=== PATIENT | male | born 1970 | race Caucasian/White ===

== ENCOUNTER 2017-07-28 14:45 | Emergency (ER) | payer MEDICAID ==
[2017-07-28 14:58] VITALS: BP 133/96
[2017-07-28] MEDS ORDERED: SODIUM CHLORIDE 0.9% 1,000 ML IV ONE ×2 (15:13)
[2017-07-28] MEDS ORDERED: HYDROmorphone 1 MG/ML SYRINGE IVP STA ×3 (15:13→17:52)
--- NOTE | 2017-07-28 15:17 | ED Physician Documentation ---
PD HPI ABD PAIN - Stated complaint Stated Complaint: AB PX/BLOOD IN STOOL - Chief complaint Chief Complaint: Abd Pain - History obtained from History obtained from: Patient - History of Present Illness Timing - onset: How many days ago (3) Timing - duration: Days (3) Timing - details: Gradual onset Pain level max: 10 Pain level now: 10 Quality: Aching, Pain Location: LLQ Radiation: Other (non-radiating) Improved by: Laying still Worsened by: Palpation Associated symptoms: Fever, Nausea, Diarrhea, Hematochezia. No: Melena Similar symptoms before: Diagnosis (diverticulitis with abscesses in the past) Recently seen: Not recently seen Review of Systems Ten Systems: 10 systems reviewed and negative Constitutional: reports: Fever, Chills Ears: denies: Ear pain Nose: denies: Rhinorrhea / runny nose, Congestion Throat: denies: Sore throat Cardiac: denies: Chest pain / pressure Respiratory: denies: Cough GI: reports: Diarrhea. denies: Nausea, Hematemesis : denies: Dysuria Skin: denies: Rash Musculoskeletal: denies: Neck pain, Back pain Neurologic: denies: Headache PD PAST MEDICAL HISTORY - Past Medical History Past Medical History: Yes GI: Diverticulitis - Past Surgical History Past Surgical History: Yes Ortho: Spine surgery, Other - Present Medications Home Medications: Ambulatory Orders Medication Instructions Recorded Confirmed Amox/Clav 875/125 [Augmentin] 1 each PO Q12H #28 tablet 07/28/17 HYDROmorphone [Dilaudid] 2 mg PO Q4H PRN #14 tablet 07/28/17 Ondansetron Odt [Zofran] 4 mg TL Q6H PRN #10 tablet 07/28/17 - Allergies Allergies/Adverse Reactions: Allergies Allergy/AdvReac Type Severity Reaction Status Date / Time No Known Drug Allergies Allergy Verified 07/28/17 16:08 - Social History Does the pt smoke?: No Smoking Status: Never smoker Does the pt drink ETOH?: Yes Does the pt have substance abuse?: Yes Substance Use and Type: Marijuana PD ED PE NORMAL - Vitals Vital signs reviewed: Yes - General General: Alert and oriented X 3, No acute distress - HEENT HEENT: Moist mucous membranes - Neck Neck: Supple, no meningeal sign - Cardiac Cardiac: RRR - Respiratory Respiratory: No respiratory distress, Clear bilaterally - Abdomen Abdomen: Soft, Non distended, Other (TTP LLQ, no peritoneal signs. ) - Male Male : Pt declined - Back Back: No CVA TTP, No spinal TTP - Derm Derm: Warm and dry - Extremities Extremities: No edema - Neuro Neuro: Alert and oriented X 3 - Psych Psych: Normal mood, Normal affect Results - Vitals Vitals: Vital Signs - 24 hr 07/28/17 14:55 Temperature 36.3 C L Heart Rate 64 Respiratory 18 Rate Blood Pressure 133/96 H O2 Saturation 99 Oxygen O2 Source Room air - Labs Labs: Laboratory Tests 07/28/17 07/28/17 15:40 15:40 WBC 8.4 RBC 4.67 L Hgb 13.9 L Hct 42.8 MCV 91.6 MCH 29.8 MCHC 32.6 RDW 13.6 Plt Count 285 MPV 9.4 Neut # 5.7 Lymph # 1.8 [place] # 0.7 Eos # 0.2 Baso # 0.1 Absolute Nucleated RBC 0.00 Nucleated RBC % 0.0 Sodium 137 Potassium 4.4 Chloride 101 Carbon Dioxide 24 Anion Gap 12.0 BUN 13 Creatinine 1.0 Estimated GFR (MDRD) 79 L Glucose 101 H Calcium 9.2 Total Bilirubin 0.4 AST 26 ALT 24 Alkaline Phosphatase 95 Total Protein 7.8 Albumin 3.7 Globulin 4.1 Albumin/Globulin Ratio 0.9 L Lipase 47 - Rads (name of study) ct abd/pelvis Radiology: Prelim report reviewed, EMP read contemporaneously, See rad report ( 1. Circumferential moderate colonic wall thickening for length of 5 cm seen in the sigmoid colon. Minimal adjacent stranding. There are a few diverticula here. On the left lateral aspect of this, there is lymphadenopathy measuring 1.2 cm. On the left side of the sigmoid colon there is either an elongated diverticulum versus fistulous tract with enhancement of the moralez, has a length of 2.4 cm with a width of 6 mm. There is adjacent bladder dome thickening. These findings could represent primary colon malignancy with local metastasis versus acute on chronic diverticulitis. Further workup recommended. No comparisons. 2. Moderate bilateral inguinal hernias, the left inguinal hernia containing fat. At the top of the right inguinal hernia, small bowel loops enter without evidence for bowel obstruction or strangulation. Mild amount of stranding of the fat in the right inguinal hernia. Fat strangulation not excluded. 3. Otherwise, as above. ) PD MEDICAL DECISION MAKING - ED course Complexity details: reviewed results, re-evaluated patient, considered differential, d/w patient, d/w principal consultant ED course: Patient is a 47-year-old male who presents to the emergency department with what appears to be acute on chronic diverticulitis. No abscess or perforation. Discussed the case and reviewed the CT findings with Dr. Adams, general surgery on-call who recommends close follow-up in the emergency department if he is unable to be seen in the clinic. Will also need an outpatient colonoscopy after treatment. Patient was counseled on the importance of this as there could be a malignancy that we are missing. He believes he has had a colonoscopy before but not for 7 or 8 years. No evidence of perforation. No fever. No sepsis. Abdomen is soft, mildly tender on repeat examination. Also has bilateral inguinal hernias, neither of which are incarcerated. Tolerating p.o. without difficulty. Patient counseled regarding signs and symptoms for which I believe and urgent re-evaluation would be necessary. Patient with good understanding of and agreement to plan and is comfortable going home at this time This document was made in part using voice recognition software. While efforts are made to proofread this document, sound alike and grammatical errors may occur. Departure - Departure Disposition: 01 Home, Self Care Clinical Impression: Diverticulitis Condition: Good Instructions: ED Diverticulitis Follow-Up: Alexx Adams MD [Provider Admit Priv/Credential] - Within 1 week Prescriptions: Amox/Clav 875/125 [Augmentin] 1 each PO Q12H #28 tablet HYDROmorphone [Dilaudid] 2 mg PO Q4H PRN #14 tablet PRN Reason: Abdominal Pain Ondansetron Odt [Zofran] 4 mg TL Q6H PRN #10 tablet PRN Reason: Nausea / Vomiting Comments: Take all antibiotics until gone. Return if you worsen. You should return in the emergency department in 2-3 days for a recheck as well. This was recommended by Dr. Adams, surgery. It is also recommended that you have a colonoscopy urgently after your antibiotics are finished. This would be to exclude malignancy in your colon. I did speak with Dr. Adams today. You can follow-up in his clinic as well. Do not drink alcohol or drive while on narcotic pain medicine. Note that many narcotic pain relievers also contain tylenol/acetaminophen. Please ensure that your total dose of acetaminophen from all sources does not exceed 3 grams (3000mg) per day. You may constipated on this medication, take a stool softener such as "Colace" twice a day while you are on it. Also recommend a rbcm-vnr-cdtrisi laxative such as senna or MiraLAX any day that you do not have a bowel movement. If you received narcotic pain medication in the emergency department, do not drive or operate machinery for the next 24 hours. Forms: Activity restrictions
[2017-07-28 15:54] LABS: BASOPHILS # (AUTO) 0.1 10^3/uL (0.0-0.1); BASOPHILS % (AUTO) 0.7 %; EOSINOPHILS # (AUTO) 0.2 10^3/uL (0.0-0.7); EOSINOPHILS % (AUTO) 1.9 %; HGB - HEMOGLOBIN 13.9 g/dL (14.0-18.0); LYMPHOCYTES # (AUTO) 1.8 10^3/uL (1.5-3.5); LYMPHOCYTES % (AUTO) 21.9 %; MEAN CORPUSCULAR HEMOGLOBIN 29.8 pg (27.0-31.0); MEAN CORPUSCULAR HGB CONC 32.6 g/dL (32.0-36.0); MEAN CORPUSCULAR VOLUME 91.6 fL (80.0-94.0); MEAN PLATELET VOLUME 9.4 fL (7.4-11.4); MONOCYTES # (AUTO) 0.7 10^3/uL (0.0-1.0); NEUTROPHILS # (AUTO) 5.7 10^3/uL (1.5-6.6); NEUTROPHILS % (AUTO) 67.5 %; PLT - PLATELET COUNT 285 10^3/uL (130-450); RED BLOOD COUNT 4.67 10^6/uL (4.70-6.10); RED CELL DISTRIBUTION WIDTH 13.6 % (12.0-15.0); WHITE BLOOD COUNT 8.4 x10^3/uL (4.8-10.8)
[2017-07-28 16:07] LABS: ALBUMIN 3.7 g/dL (3.2-5.5); ALBUMIN/GLOBULIN RATIO 0.9 (1.0-2.2); BILIRUBIN,TOTAL 0.4 mg/dL (0.2-1.0); CALCIUM 9.2 mg/dL (8.5-10.3); TOTAL PROTEIN 7.8 g/dL (6.7-8.2)
[2017-07-28] MEDS ORDERED: TETANUS/DIPHTHERIA/PERTUSSIS 0.5 ML SYRINGE IM ONE (16:12)
[2017-07-28] MEDS ORDERED: IOPAMIDOL-300 100 ML VIAL ONE (16:13)
[2017-07-28] MEDS ORDERED: IOPAMIDOL-300 100 ML VIAL IVP ONE (16:35)
--- NOTE | 2017-07-28 17:20 | CT Report ---
EXAM: CT ABDOMEN AND PELVIS EXAM DATE: 07/28/2017 04:36 PM. CLINICAL HISTORY: Left lower quadrant abdominal pain, h/o diverticulitis. COMPARISONS: None. TECHNIQUE: Routine helical CT imaging was performed through the abdomen and pelvis. IV contrast: ISOV UE 300 100mL. Enteric contrast: No. Reconstructions: Coronal and sagittal. In accordance with CT protocol optimization, one or more of the following dose reduction techniques w ere utilized for this exam: automated exposure control, adjustment of mA and/or KV based on patient s ize, or use of iterative reconstructive technique. FINDINGS: Lung Bases: Unremarkable. Liver: Normal. No masses. Gallbladder/Bile Ducts: Unremarkable. Spleen: Normal. Pancreas: Normal. Adrenal Glands: Normal. Kidneys: Normal. No masses or hydronephrosis. Peritoneal Cavity/Bowel: Circumferential moderate colonic wall thickening for length of 5 cm seen in the sigmoid colon. Minimal adjacent stranding. There are a few diverticula here. On the left lateral aspect of this, there is lymphadenopathy measuring 1.2 cm. On the left side of the sigmoid colon ther e is either an elongated diverticulum versus fistulous tract with enhancement of the moralez, has a wellington gth of 2.4 cm with a width of 6 mm. There is adjacent bladder dome thickening. No definite free air. Moderate stool in the proximal sigmoid colon proximal to this colonic wall thickening. Normal appendix. No dilated bowel loops are seen to suggest obstruction. Moderate bilateral inguinal hernias, the left inguinal hernia containing fat. At the top of the right inguinal hernia, small bowel loops enter without evidence for bowel obstruction or strangulation. Th e right inguinal hernia neck measures 3.4 cm and the left measures 2.4 cm. Mild amount of stranding o f the fat in the right inguinal hernia. Fat strangulation not excluded. Pelvic Organs: Bladder dome wall thickening. Remaining pelvic organs appear unremarkable. Vasculature: No acute findings. No abdominal aortic aneurysm. The superior mesenteric artery appears patent. Bones: Moderate kyphosis of the lumbar spine with chronic bony deformity and diffuse facet joint osse ous fusion. Chronic bilateral L5 pars defects with grade 1 anterolisthesis of L5-S1 and grade 1 retro listhesis of L4-L5. IMPRESSION: 1. Circumferential moderate colonic wall thickening for length of 5 cm seen in the sigmoid colon. Min imal adjacent stranding. There are a few diverticula here. On the left lateral aspect of this, there is lymphadenopathy measuring 1.2 cm. On the left side of the sigmoid colon there is either an elongat ed diverticulum versus fistulous tract with enhancement of the moralez, has a length of 2.4 cm with a w idth of 6 mm. There is adjacent bladder dome thickening. These findings could represent primary colon malignancy with local metastasis versus acute on chronic diverticulitis. Further workup recommended. No comparisons. 2. Moderate bilateral inguinal hernias, the left inguinal hernia containing fat. At the top of the ri ght inguinal hernia, small bowel loops enter without evidence for bowel obstruction or strangulation. Mild amount of stranding of the fat in the right inguinal hernia. Fat strangulation not excluded. 3. Otherwise, as above. [facility] Referring Provider Line: [phone] SITE ID: [id number]
[2017-07-28] MEDS ORDERED: AMPICILLIN/SULBACTAM 3 GM in SODIUM CHLORIDE 0.9% MINIBAG 100 ML IV STA (17:29)
[2017-07-28] MEDS ORDERED: oxyCOD/ACETAMIN 5 MG/325 MG TABLET PO STA (17:32)
== END 2017-07-28 18:51 | disposition home or self-care (01) ==
LOC: ED 14:45
DX: K57.32 Diverticulitis of large intestine without perforation or abscess without bleeding (principal); K40.20 Bilateral inguinal hernia, without obstruction or gangrene, not specified as recurrent
CPT/HCPCS: 36415; 74177; 80053; 83690; 85025; 96361; 96365; 96375; 96376; 99283; 99284; A9270; J1170; Q9967

== ENCOUNTER 2017-08-03 16:17 | Emergency (ER) | payer MEDICAID ==
[2017-08-03] MEDS ORDERED: HYDROmorphone 1 MG/ML SYRINGE IVP STA ×3 (16:37→18:57)
[2017-08-03] MEDS ORDERED: ONDANSETRON 4 MG/2 ML VIAL IVP STA (16:37)
--- NOTE | 2017-08-03 16:39 | ED Physician Documentation ---
PD HPI ABD PAIN - Stated complaint Stated Complaint: DIARRHEA - Chief complaint Chief Complaint: Abd Pain - History obtained from History obtained from: Patient - History of Present Illness Timing - onset: Other (47-year-old gentleman with recurrent diverticulitis, he was seen here July 28 for diverticulitis, he had been in 3 days of pain at that point. It is on the left side. He was vomiting then. CT reviewed, concern for malignancy and colitis. He was placed on Augmentin. He is here because he really has not improved at all and now has profuse diarrhea which is blood-tinged associated with continued left-sided pain but no fevers.) Review of Systems Ten Systems: 10 systems reviewed and negative Constitutional: denies: Fever, Chills Nose: denies: Rhinorrhea / runny nose, Congestion Throat: denies: Sore throat Cardiac: denies: Chest pain / pressure, Palpitations Respiratory: denies: Dyspnea, Cough PD PAST MEDICAL HISTORY - Past Medical History Past Medical History: Yes GI: Diverticulitis - Past Surgical History Past Surgical History: Yes Ortho: Spine surgery, Other - Present Medications Home Medications: Ambulatory Orders Medication Instructions Recorded Confirmed Amox/Clav 875/125 [Augmentin] 1 each PO Q12H #28 tablet 07/28/17 HYDROmorphone [Dilaudid] 2 mg PO Q4H PRN #14 tablet 07/28/17 Ondansetron Odt [Zofran] 4 mg TL Q6H PRN #10 tablet 07/28/17 Ciprofloxacin HCl [Cipro] 500 mg PO BID #20 tablet 08/03/17 HYDROmorphone [Dilaudid] 2 mg PO Q6H PRN #20 tablet 08/03/17 Metronidazole [Flagyl] 500 mg PO TID #30 tablet 08/03/17 - Allergies Allergies/Adverse Reactions: Allergies Allergy/AdvReac Type Severity Reaction Status Date / Time No Known Drug Allergies Allergy Verified 07/28/17 16:08 - Social History Does the pt smoke?: No Smoking Status: Never smoker Does the pt drink ETOH?: Yes Does the pt have substance abuse?: Yes Substance Use and Type: Marijuana - Family History Family history: reports: Non contributory - Immunizations Immunizations are current?: No - POLST Patient has POLST: No PD ED PE NORMAL - Vitals Vital signs reviewed: Yes - General General: Alert and oriented X 3, No acute distress - HEENT HEENT: PERRL, EOMI - Neck Neck: Supple, no meningeal sign, No bony TTP - Cardiac Cardiac: RRR, No murmur - Respiratory Respiratory: No respiratory distress, Clear bilaterally - Abdomen Abdomen: Other (Hyperactive bowel tones, tenderness especially in the left lower quadrant without guarding or rebound.) - Back Back: No CVA TTP, No spinal TTP - Derm Derm: Normal color, Warm and dry - Extremities Extremities: No deformity, No tenderness to palpate - Neuro Neuro: Alert and oriented X 3, Normal speech - Psych Psych: Normal mood, Normal affect Results - Vitals Vitals: Vital Signs - 24 hr 08/03/17 08/03/17 16:22 17:43 Temperature 36.4 C L Heart Rate 64 55 L Respiratory 18 18 Rate Blood Pressure 128/78 134/71 H O2 Saturation 96 99 Oxygen O2 Source Room air - Labs Labs: Laboratory Tests 08/03/17 08/03/17 16:45 16:45 WBC 9.1 RBC 4.66 L Hgb 14.1 Hct 42.4 MCV 91.1 MCH 30.2 MCHC 33.2 RDW 13.2 Plt Count 280 MPV 9.6 Neut # 6.7 H Lymph # 1.6 [place] # 0.5 Eos # 0.2 Baso # 0.1 Absolute Nucleated RBC 0.00 Nucleated RBC % 0.1 Sodium 137 Potassium 3.9 Chloride 102 Carbon Dioxide 23 Anion Gap 12.0 BUN 11 Creatinine 1.1 Estimated GFR (MDRD) 71 L Glucose 99 Calcium 9.2 Total Bilirubin 0.4 AST 21 ALT 23 Alkaline Phosphatase 89 Total Protein 7.8 Albumin 3.8 Globulin 4.0 Albumin/Globulin Ratio 1.0 Lipase 37 - Rads (name of study) CT A/P Radiology: EMP read contemporaneously (Diverticulitis, loss of fat plane between coloin and bladder) PD MEDICAL DECISION MAKING - ED course ED course: 47-year-old gentleman with diverticulitis that seems to have failed outpatient treatment. CT has shown and labs are reassuring. He was offered admission but wanted a trial of a different antibiotic at home. He understands he needs to return in the next 2 or 3 days if not improving. Departure - Departure Disposition: 01 Home, Self Care Clinical Impression: Diverticulitis of gastrointestinal tract Condition: Good Record reviewed to determine appropriate education?: Yes Instructions: ED Diverticulitis Prescriptions: Ciprofloxacin HCl [Cipro] 500 mg PO BID #20 tablet HYDROmorphone [Dilaudid] 2 mg PO Q6H PRN #20 tablet PRN Reason: Pain Metronidazole [Flagyl] 500 mg PO TID #30 tablet Comments: Return in 2-3 days if not better, anytime if worse. Follow-up with your primary care physician and discuss for surgical referral as you may need a surgery to prevent further episodes of diverticulitis. Forms: Activity restrictions
[2017-08-03] MEDS ORDERED: SODIUM CHLORIDE 0.9% 1,000 ML IV ONE (16:51)
[2017-08-03] MEDS ORDERED: IOPAMIDOL-300 100 ML VIAL ONE (16:53)
[2017-08-03 17:06] LABS: BASOPHILS # (AUTO) 0.1 10^3/uL (0.0-0.1); BASOPHILS % (AUTO) 0.7 %; EOSINOPHILS # (AUTO) 0.2 10^3/uL (0.0-0.7); EOSINOPHILS % (AUTO) 2.6 %; HGB - HEMOGLOBIN 14.1 g/dL (14.0-18.0); LYMPHOCYTES # (AUTO) 1.6 10^3/uL (1.5-3.5); LYMPHOCYTES % (AUTO) 17.1 %; MEAN CORPUSCULAR HEMOGLOBIN 30.2 pg (27.0-31.0); MEAN CORPUSCULAR HGB CONC 33.2 g/dL (32.0-36.0); MEAN CORPUSCULAR VOLUME 91.1 fL (80.0-94.0); MEAN PLATELET VOLUME 9.6 fL (7.4-11.4); MONOCYTES # (AUTO) 0.5 10^3/uL (0.0-1.0); NEUTROPHILS # (AUTO) 6.7 10^3/uL (1.5-6.6); NEUTROPHILS % (AUTO) 73.6 %; PLT - PLATELET COUNT 280 10^3/uL (130-450); RED BLOOD COUNT 4.66 10^6/uL (4.70-6.10); RED CELL DISTRIBUTION WIDTH 13.2 % (12.0-15.0); WHITE BLOOD COUNT 9.1 x10^3/uL (4.8-10.8)
[2017-08-03 17:19] LABS: ALBUMIN 3.8 g/dL (3.2-5.5); BILIRUBIN,TOTAL 0.4 mg/dL (0.2-1.0); CALCIUM 9.2 mg/dL (8.5-10.3); CREATININE 1.1 mg/dL (0.6-1.2); TOTAL PROTEIN 7.8 g/dL (6.7-8.2)
[2017-08-03] MEDS ORDERED: IOPAMIDOL-300 100 ML VIAL IVP ONE (17:41)
--- NOTE | 2017-08-03 18:18 | CT Report ---
EXAM: CT ABDOMEN AND PELVIS EXAM DATE: 08/03/2017 05:41 PM. CLINICAL HISTORY: Low abd pain worse, recent diverticulitis. COMPARISONS: 07/28/2017. TECHNIQUE: Routine helical CT imaging was performed through the abdomen and pelvis. IV contrast: 100 ML ISOVUE 300. Enteric contrast: No. Reconstructions: Coronal and sagittal. In accordance with CT protocol optimization, one or more of the following dose reduction techniques w ere utilized for this exam: automated exposure control, adjustment of mA and/or KV based on patient s ize, or use of iterative reconstructive technique. FINDINGS: Lung Bases: Unremarkable. Liver: Normal. No masses. Gallbladder/Bile Ducts: Unremarkable. Spleen: Normal. Pancreas: Normal. Adrenal Glands: Normal. Kidneys: Normal. No masses or hydronephrosis. Peritoneal Cavity/Bowel: Stomach and small bowel demonstrate no acute abnormalities. There is sigmoid colon diverticulosis. There is sigmoid colon wall thickening and mild adjacent fat stranding. There are adjacent regional lymph nodes. There is no evidence of drainable pericolonic abscess. No intraper itoneal free air. No evidence of appendicitis. There are bilateral internal hernias. There is small b owel within the upper aspect of the right inguinal hernia. The left inguinal hernia is fat-containing . Pelvic Organs: There is thickening at the upper margin of the urinary bladder. There is loss of fat p mook between the urinary bladder and sigmoid colon (image 31 series 5). Vasculature: No aneurysms or other significant abnormality. Bones: No significant abnormality. Other: None. IMPRESSION: 1. There is sigmoid colon diverticulosis. There is focal sigmoid colon wall thickening. There is mild adjacent fat stranding. There are prominent regional lymph nodes. Findings are suspicious for sigmoi d colon diverticulitis. Differential consideration for colonic wall thickening would be colon cancer. There is no evidence of intraperitoneal free air or drainable pericolonic abscess. CT findings are c omparable to the previous examination. 2. There is loss of fat plane between the urinary bladder, which demonstrates wall thickening, and th e thickened sigmoid colon. Developing colovesicular fistula is not excluded. 3. There are bilateral inguinal hernias. There is small bowel within the upper aspect of the right in guinal hernia. No evidence of associated inflammation or obstruction. [facility] Referring Provider Line: [phone] SITE ID: [id number]
[2017-08-03] MEDS ORDERED: metroNIDAZOLE 250 MG TABLET PO STA (18:57)
[2017-08-03] MEDS ORDERED: CIPROFLOXACIN 250 MG TABLET PO STA (18:57)
[2017-08-03 19:28] VITALS: BP 122/81
== END 2017-08-03 19:32 | disposition home or self-care (01) ==
LOC: ED 16:17
DX: K57.92 Diverticulitis of intestine, part unspecified, without perforation or abscess without bleeding (principal)
CPT/HCPCS: 36415; 74177; 80053; 83690; 85025; 96374; 96376; 99283; 99284; A9270; J1170; Q9967

== ENCOUNTER 2017-08-12 17:07 | Inpatient (IN) | payer MEDICAID ==
[2017-08-12 17:37] LABS: BASOPHILS # (AUTO) 0.1 10^3/uL (0.0-0.1); BASOPHILS % (AUTO) 0.8 %; EOSINOPHILS # (AUTO) 0.2 10^3/uL (0.0-0.7); EOSINOPHILS % (AUTO) 2.3 %; HGB - HEMOGLOBIN 14.9 g/dL (14.0-18.0); LYMPHOCYTES % (AUTO) 20.7 %; MEAN CORPUSCULAR HEMOGLOBIN 29.7 pg (27.0-31.0); MEAN CORPUSCULAR HGB CONC 33.2 g/dL (32.0-36.0); MEAN CORPUSCULAR VOLUME 89.4 fL (80.0-94.0); MONOCYTES # (AUTO) 0.6 10^3/uL (0.0-1.0); MONOCYTES % (AUTO) 6.1 %; NEUTROPHILS # (AUTO) 6.8 10^3/uL (1.5-6.6); NEUTROPHILS % (AUTO) 70.1 %; PLT - PLATELET COUNT 361 10^3/uL (130-450); RED BLOOD COUNT 5.01 10^6/uL (4.70-6.10); RED CELL DISTRIBUTION WIDTH 13.6 % (12.0-15.0); WHITE BLOOD COUNT 9.8 x10^3/uL (4.8-10.8)
[2017-08-12 17:52] LABS: BILIRUBIN,TOTAL 0.5 mg/dL (0.2-1.0); CALCIUM 9.1 mg/dL (8.5-10.3); CREATININE 0.9 mg/dL (0.6-1.2); TOTAL PROTEIN 7.9 g/dL (6.7-8.2)
[2017-08-12] MEDS ORDERED: HYDROmorphone 1 MG/ML SYRINGE IVP STA ×4 (18:19→22:04)
[2017-08-12] MEDS ORDERED: ONDANSETRON 4 MG/2 ML VIAL IVP STA (18:22)
[2017-08-12 18:25] LABS: BILIRUBIN,URINE NEGATIVE (NEGATIVE); GLUCOSE, URINE (UA) NEGATIVE (NEGATIVE); KETONES,URINE (UA) NEGATIVE (NEGATIVE); LEUKOCYTE ESTERASE, URINE NEGATIVE (NEGATIVE); NITRITE,URINE NEGATIVE (NEGATIVE); OCCULT BLOOD,URINE TRACE-INTA (NEGATIVE); PROTEIN,URINE NEGATIVE (NEGATIVE); UROBILINOGEN,URINE 0.2 (NORMAL) E.U./dL (NORMAL)
[2017-08-12 18:26] LABS: CLARITY,URINE CLEAR (CLEAR)
[2017-08-12] MEDS ORDERED: PIPERACILLIN/TAZOBACTAM 3.375 GM in SODIUM CHLORIDE 0.9% MINIBAG 100 ML IV STA (18:30)
[2017-08-12] MEDS ORDERED: metroNIDAZOLE 500 MG/100 ML 500 MG/100 ML BAG IV ONE (18:31)
[2017-08-12] MEDS ORDERED: IOPAMIDOL-300 50 ML VIAL ONE (18:38)
[2017-08-12] MEDS ORDERED: IOPAMIDOL-300 100 ML VIAL ONE (18:38)
[2017-08-12] MEDS ORDERED: IOPAMIDOL-300 100 ML VIAL IVP ONE (19:12)
--- NOTE | 2017-08-12 19:32 | CT Report ---
EXAM: CT ABDOMEN AND PELVIS EXAM DATE: 08/12/2017 06:54 PM. CLINICAL HISTORY: Increasing abd pain, recent diverticulitis. COMPARISONS: 08/03/2017 CT. TECHNIQUE: Routine helical CT imaging was performed through the abdomen and pelvis. IV contrast: ISOV UE 300 100mL. Enteric contrast: No. Reconstructions: Coronal and sagittal. In accordance with CT protocol optimization, one or more of the following dose reduction techniques w ere utilized for this exam: automated exposure control, adjustment of mA and/or KV based on patient s ize, or use of iterative reconstructive technique. FINDINGS: Lung Bases: Unremarkable. Liver: Normal. No masses. Gallbladder/Bile Ducts: Unremarkable. Spleen: Normal. Pancreas: Normal. Adrenal Glands: Normal. Kidneys: Normal. No masses or hydronephrosis. Peritoneal Cavity/Bowel: Again seen is somewhat eccentric appearing mural thickening of the distal si gmoid colon. There is diverticulosis. No progression of surrounding inflammatory changes. No fluid co llections. The urinary bladder appears tethered to the sigmoid colon raising the possibility of fistu la. No air however seen within the bladder. The appendix is well visualized and normal. Pelvic Organs: Bladder changes as above. There is a right inguinal hernia containing a short segment of nonobstructed small bowel. Vasculature: No aneurysms or other significant abnormality. Bones: No significant abnormality. Other: None. IMPRESSION: 1. Persistent thickening of the distal sigmoid colon with underlying diverticulosis. This may be seco ndary to mild diverticulitis or neoplasm. No significant surrounding inflammatory changes or fluid co llections. 2. The urinary bladder appears tethered to the sigmoid colon. Colovesical fistula is possible however no urinary bladder air present. 3. Nonobstructing small bowel containing right inguinal hernia. [facility] Referring Provider Line: [phone] SITE ID: [id number]
--- NOTE | 2017-08-12 19:55 | ED Physician Documentation ---
PD HPI ABD PAIN - Stated complaint Stated Complaint: Abd Pain - Chief complaint Chief Complaint: Abd Pain - History obtained from History obtained from: Patient, Family - History of Present Illness Timing - onset: How many weeks ago (2) Timing - duration: Weeks (2) Timing - details: Gradual onset Pain level max: 10 Pain level now: 10 Quality: Aching, Pain Location: LLQ Radiation: Other (non-radiating) Improved by: Other (nothing) Worsened by: Moving Associated symptoms: Nausea, Vomiting, Diarrhea. No: Fever, Constipation, Melena, Hematochezia, Dysuria Similar symptoms before: Diagnosis (diverticulitis) Recently seen: Emergency Dept (x2 for same, states not improving.) Review of Systems Ten Systems: 10 systems reviewed and negative Constitutional: denies: Fever, Chills Throat: denies: Sore throat Cardiac: denies: Chest pain / pressure Respiratory: denies: Cough, Wheezing : denies: Dysuria Skin: denies: Rash Musculoskeletal: denies: Neck pain, Back pain Neurologic: denies: Headache PD PAST MEDICAL HISTORY - Past Medical History Past Medical History: Yes GI: Diverticulitis - Past Surgical History Past Surgical History: Yes Ortho: Spine surgery, Other - Present Medications Home Medications: Ambulatory Orders Medication Instructions Recorded Confirmed Amox/Clav 875/125 [Augmentin] 1 each PO Q12H #28 tablet 07/28/17 HYDROmorphone [Dilaudid] 2 mg PO Q4H PRN #14 tablet 07/28/17 Ondansetron Odt [Zofran] 4 mg TL Q6H PRN #10 tablet 07/28/17 Ciprofloxacin HCl [Cipro] 500 mg PO BID #20 tablet 08/03/17 HYDROmorphone [Dilaudid] 2 mg PO Q6H PRN #20 tablet 08/03/17 Metronidazole [Flagyl] 500 mg PO TID #30 tablet 08/03/17 - Allergies Allergies/Adverse Reactions: Allergies Allergy/AdvReac Type Severity Reaction Status Date / Time No Known Drug Allergies Allergy Verified 08/12/17 17:23 - Social History Does the pt smoke?: No Smoking Status: Never smoker Does the pt drink ETOH?: Yes Does the pt have substance abuse?: Yes - Immunizations Immunizations are current?: No - POLST Patient has POLST: No PD ED PE NORMAL - Vitals Vital signs reviewed: Yes - General General: Alert and oriented X 3, Well developed/nourished, Other (Appears in pain) - HEENT HEENT: PERRL, Moist mucous membranes - Neck Neck: Supple, no meningeal sign - Cardiac Cardiac: RRR, Strong equal pulses - Respiratory Respiratory: No respiratory distress, Clear bilaterally - Abdomen Abdomen: Soft, Non distended, Other (Tender to palpation suprapubic and left lower quadrant. No peritoneal signs) - Back Back: No CVA TTP, No spinal TTP - Derm Derm: Warm and dry, No rash - Extremities Extremities: No edema - Neuro Neuro: Alert and oriented X 3 - Psych Psych: Normal mood, Normal affect Results - Vitals Vitals: Vital Signs - 24 hr 08/12/17 08/12/17 08/12/17 17:21 18:10 19:20 Temperature 36.7 C 36.2 C L Heart Rate 67 65 62 Respiratory 18 18 18 Rate Blood Pressure 146/95 H 151/94 H 111/73 O2 Saturation 98 96 92 Oxygen O2 Source Room air - Labs Labs: Laboratory Tests 08/12/17 08/12/17 08/12/17 17:30 17:30 17:30 WBC 9.8 RBC 5.01 Hgb 14.9 Hct 44.8 MCV 89.4 MCH 29.7 MCHC 33.2 RDW 13.6 Plt Count 361 MPV 9.0 Neut # 6.8 H Lymph # 2.0 [place] # 0.6 Eos # 0.2 Baso # 0.1 Absolute Nucleated RBC 0.00 Nucleated RBC % 0.1 PT 12.1 INR 1.1 Sodium 136 Potassium 3.9 Chloride 106 Carbon Dioxide 22 Anion Gap 8.0 BUN 14 Creatinine 0.9 Estimated GFR (MDRD) 90 Glucose 116 H Calcium 9.1 Total Bilirubin 0.5 AST 42 ALT 57 Alkaline Phosphatase 94 Total Protein 7.9 Albumin 4.0 Globulin 3.9 Albumin/Globulin Ratio 1.0 Lipase 27 Urine Color Urine Clarity Urine pH Ur Specific [place] Urine Protein Urine Glucose (UA) Urine Ketones Urine Occult Blood Urine Nitrite Urine Bilirubin Urine Urobilinogen Ur Leukocyte Esterase Ur Microscopic Review Urine Culture Comments 08/12/17 18:14 WBC RBC Hgb Hct MCV MCH MCHC RDW Plt Count MPV Neut # Lymph # [place] # Eos # Baso # Absolute Nucleated RBC Nucleated RBC % PT INR Sodium Potassium Chloride Carbon Dioxide Anion Gap BUN Creatinine Estimated GFR (MDRD) Glucose Calcium Total Bilirubin AST ALT Alkaline Phosphatase Total Protein Albumin Globulin Albumin/Globulin Ratio Lipase Urine Color YELLOW Urine Clarity CLEAR Urine pH 5.0 Ur Specific [place] >=1.030 H Urine Protein NEGATIVE Urine Glucose (UA) NEGATIVE Urine Ketones NEGATIVE Urine Occult Blood TRACE-INTA Urine Nitrite NEGATIVE Urine Bilirubin NEGATIVE Urine Urobilinogen 0.2 (NORMAL) Ur Leukocyte Esterase NEGATIVE Ur Microscopic Review NOT INDICATED Urine Culture Comments NOT INDICATED - Rads (name of study) CT abdomen pelvis Radiology: Prelim report reviewed, EMP read contemporaneously, See rad report ( Persistent thickening of the distal sigmoid colon with underlying diverticulosis. This may be secondary to mild diverticulitis or neoplasm. No significant surrounding inflammatory changes or fluid collections. 2. The urinary bladder appears tethered to the sigmoid colon. Colovesical fistula is possible however no urinary bladder air present. 3. Nonobstructing small bowel containing right inguinal hernia. ) PD MEDICAL DECISION MAKING - ED course Complexity details: reviewed old records, reviewed results, re-evaluated patient , considered differential, d/w patient, d/w family, d/w construction consultant ED course: Patient is a 47-year-old male who presents to the emergency department with ongoing diverticulitis despite being on Augmentin and then Cipro and Flagyl. Given Zosyn and Flagyl here. Has had this multiple times in the past. We will place the patient in the hospital for IV antibiotics, pain control and hydration. He also may need a consult from surgery to see if the section of his colon needs to be removed or if there is a possible neoplasm. Discussed the case with Dr. Holt, hospitalist who accepts. Also discussed with the patient that he will likely need a surgical consult at some point. This document was made in part using voice recognition software. While efforts are made to proofread this document, sound alike and grammatical errors may occur. Departure - Departure Disposition: [facility] DC/[facility] Clinical Impression: Diverticulitis Condition: Stable Discharge Date/Time: 08/12/17 22:38
[2017-08-12] MEDS ORDERED: PROCHLORPERAZINE 10 MG/2 ML VIAL IVP PRN (21:51)
[2017-08-12] MEDS ORDERED: fentaNYL PCA 500 MCG IV PRN (21:57)
[2017-08-12] MEDS ORDERED: SODIUM CHLORIDE 0.9% 1,000 ML IV ONE (22:04)
[2017-08-12 22:05] LABS: INR 1.1 (0.8-1.2); PT - PROTHROMBIN TIME 12.1 secs (9.9-12.6)
[2017-08-12] MEDS: SODIUM CHLORIDE FLUSH 0.9% 10 ML SYRINGE IVP SCH (23:36)
[2017-08-12] MEDS: D5NS W/20 MEQ KCL 1,000 ML IV SCH (23:36)
[2017-08-12] MEDS: FAMOTIDINE 20 MG/50 ML 50 ML IV SCH (23:36)
[2017-08-13] MEDS ORDERED: fentaNYL 100 MCG/2 ML VIAL ONE ×4 (00:01→06:32)
[2017-08-13] MEDS ORDERED: DEXTROSE 5% 50 ML IV ONE (00:46)
[2017-08-13] MEDS: metroNIDAZOLE 500 MG/100 ML 500 MG/100 ML BAG IV SCH ×4 (02:13→18:19)
--- NOTE | 2017-08-13 03:59 | HISTORY & PHYSICAL EXAMINATION ---
DATE OF SERVICE: 08/12/2017 Physician: Angelique Webb MD HISTORY OF PRESENT ILLNESS: This is a 47-year-old, white male with a history of diverticulitis twice in the past, he required hospitalizations both times for IV antibiotics, bowel rest, pain medications. The patient developed very similar symptoms approximately 2 weeks ago with abdominal pain, chills, nausea, vomiting and diarrhea, and presented to the emergency room and had pain control, and was discharged with oral Augmentin and pain medications. This had minimal impact and he presented back to the emergency room 1 week later, and was changed to oral Cipro and Flagyl, and had continued symptoms including explosive diarrhea, vomiting, chills and again presented to the emergency room this evening, and is now being admitted for failed outpatient oral antibiotics as well as pain management. PAST MEDICAL HISTORY: Diverticulitis x2 requiring hospitalization but no surgeries. MEDICATIONS AT HOME Recent: 1. Augmentin. 2. Cipro. 3. Flagyl. 4. Dilaudid. 5. Zofran. ALLERGIES: NONE. FAMILY HISTORY: No inherited diseases. SOCIAL HISTORY: He is a nonsmoker who never smoked, does drink alcohol socially , has had substance abuse in the past, but the details are not known. 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 REVIEW OF SYSTEMS: A comprehensive review of systems was performed and the positives are summarized above. PHYSICAL EXAMINATION GENERAL: The patient is currently in no distress after receiving IV pain medications. VITAL SIGNS: Blood pressure 115/71, heart rate 50-55 in sinus rhythm, afebrile , O2 saturation 98% on room air. HEENT: Unremarkable. His oral mucosa is moist. NECK: No JVD in a supine position. No carotid bruits, thyromegaly or adenopathy. CHEST: Clear. HEART: Heart sounds normal. ABDOMEN: Soft with hyperactive bowel sounds, nontender to light touch. No guarding or rebound. EXTREMITIES: No clubbing, cyanosis or edema. NEUROLOGIC: Intact. LABORATORIES: Normal electrolytes. Normal BUN and creatinine. Normal liver tests. Normal CBC and INR. Normal urinalysis. CT of the abdomen and pelvis was done that shows thickening of a section of his bowel, no perforation or abscess, but the urinary bladder is tethered to the bowel; however, there is no free air in the bladder to suggest a fistula. IMPRESSION/DIAGNOSIS: Recurrent diverticulitis with severe pain. PLAN: Place the patient in medical/surgical inpatient unit for bowel rest, IV hydration, IV antibiotics including Zosyn and Flagyl, and IV pain control, will use a GRAPPLE SKIDDER OPERATOR pump. The patient is currently comfortable and appears well hydrated since he had known to do bowel rest and push po liquids before this admission. The patient states it usually takes 3-5 days for these symptoms to subside and to be sent home on p.o. antibiotics to complete a course. CODE STATUS: FULL CODE. DEEP VENOUS THROMBOSIS PROPHYLAXIS: SCDs. ATTESTATION: The patient is expected to be discharged or transferred to another facility within 96 hours: Yes. TD: 08/13/2017 03:58 MELODIE
[2017-08-13] MEDS: CARBOXYMETHYLCELLULOSE OPHTH DROPS EACHEYE PRN ×3 (04:09→20:53)
[2017-08-13] MEDS: SODIUM CHLORIDE FLUSH 0.9% 10 ML SYRINGE IVP SCH ×3 (05:18→20:09)
[2017-08-13 05:51] LABS: CALCIUM 9.2 mg/dL (8.5-10.3)
[2017-08-13 05:54] LABS: BASOPHILS # (AUTO) 0.1 10^3/uL (0.0-0.1); BASOPHILS % (AUTO) 0.6 %; EOSINOPHILS # (AUTO) 0.4 10^3/uL (0.0-0.7); EOSINOPHILS % (AUTO) 3.1 %; HGB - HEMOGLOBIN 14.2 g/dL (14.0-18.0); LYMPHOCYTES # (AUTO) 3.5 10^3/uL (1.5-3.5); MEAN CORPUSCULAR HEMOGLOBIN 29.7 pg (27.0-31.0); MEAN CORPUSCULAR HGB CONC 32.6 g/dL (32.0-36.0); MEAN PLATELET VOLUME 9.8 fL (7.4-11.4); MONOCYTES # (AUTO) 0.8 10^3/uL (0.0-1.0); MONOCYTES % (AUTO) 6.6 %; NEUTROPHILS # (AUTO) 7.7 10^3/uL (1.5-6.6); NEUTROPHILS % (AUTO) 61.7 %; PLT - PLATELET COUNT 357 10^3/uL (130-450); RED BLOOD COUNT 4.77 10^6/uL (4.70-6.10); RED CELL DISTRIBUTION WIDTH 13.4 % (12.0-15.0); WHITE BLOOD COUNT 12.5 x10^3/uL (4.8-10.8)
[2017-08-13] MEDS: CEFEPIME 2 GM in SODIUM CHLORIDE 0.9% MINIBAG 100 ML IV SCH ×3 (08:54→21:29)
[2017-08-13] MEDS: FAMOTIDINE 20 MG/50 ML 50 ML IV SCH ×2 (10:08→20:53)
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
[2017-08-13 12:34] LABS: MUDS CUTOFF CONCENTRATIONS CUTOFF CONC BELOW:
[2017-08-13 12:49] LABS: AMPHETAMINE SCREEN,URINE NEGATIVE (NEGATIVE); BENZODIAZEPINES SCREEN, URINE NEGATIVE (NEGATIVE); COCAINE SCREEN URINE POSITIVE (NEGATIVE); METHADONE SCREEN, URINE NEGATIVE (NEGATIVE); METHAMPHETAMINES SCREEN, URINE NEGATIVE (NEGATIVE); OPIATE SCREEN, URINE NEGATIVE (NEGATIVE); OXYCODONE SCREEN, URINE NEGATIVE (NEGATIVE); PROPOXYPHENE SCREEN, URINE NEGATIVE (NEGATIVE); TRICYCLIC ANTIDEPRESSANT,URINE NEGATIVE (NEGATIVE)
[2017-08-13] MEDS ORDERED: HYDROmorphone 1 MG/ML SYRINGE IVP PRN (13:01)
[2017-08-13] MEDS ORDERED: HYDROmorphone PCA 20MG/100ML IV PRN ×3 (13:34→23:00)
[2017-08-13] MEDS: D5NS W/20 MEQ KCL 1,000 ML IV SCH (16:52)
[2017-08-13] MEDS ORDERED: PIPERACILLIN/TAZOBACTAM 3.375 GM in SODIUM CHLORIDE 0.9% MINIBAG 100 ML IV SCH (19:00)
[2017-08-13] MEDS: ONDANSETRON 4 MG/2 ML VIAL IVP PRN (20:53)
[2017-08-14] MEDS: metroNIDAZOLE 500 MG/100 ML 500 MG/100 ML BAG IV SCH ×5 (00:39→23:51)
[2017-08-14] MEDS: D5NS W/20 MEQ KCL 1,000 ML IV SCH ×2 (00:40→10:47)
[2017-08-14] MEDS: ONDANSETRON 4 MG/2 ML VIAL IVP PRN ×2 (02:24→12:08)
[2017-08-14] MEDS: SODIUM CHLORIDE FLUSH 0.9% 10 ML SYRINGE IVP PRN (02:34)
[2017-08-14] MEDS: CEFEPIME 2 GM in SODIUM CHLORIDE 0.9% MINIBAG 100 ML IV SCH ×3 (04:52→21:23)
[2017-08-14 04:55] LABS: BASOPHILS # (AUTO) 0.1 10^3/uL (0.0-0.1); BASOPHILS % (AUTO) 0.7 %; EOSINOPHILS # (AUTO) 0.3 10^3/uL (0.0-0.7); EOSINOPHILS % (AUTO) 3.3 %; HGB - HEMOGLOBIN 12.4 g/dL (14.0-18.0); LYMPHOCYTES # (AUTO) 2.4 10^3/uL (1.5-3.5); LYMPHOCYTES % (AUTO) 24.9 %; MEAN CORPUSCULAR HEMOGLOBIN 30.6 pg (27.0-31.0); MEAN CORPUSCULAR HGB CONC 33.6 g/dL (32.0-36.0); MEAN CORPUSCULAR VOLUME 90.9 fL (80.0-94.0); MEAN PLATELET VOLUME 9.3 fL (7.4-11.4); MONOCYTES # (AUTO) 0.7 10^3/uL (0.0-1.0); MONOCYTES % (AUTO) 7.7 %; NEUTROPHILS # (AUTO) 6.1 10^3/uL (1.5-6.6); NEUTROPHILS % (AUTO) 63.4 %; PLT - PLATELET COUNT 331 10^3/uL (130-450); RED BLOOD COUNT 4.05 10^6/uL (4.70-6.10); RED CELL DISTRIBUTION WIDTH 13.2 % (12.0-15.0); WHITE BLOOD COUNT 9.7 x10^3/uL (4.8-10.8)
[2017-08-14 05:04] LABS: ALBUMIN 3.5 g/dL (3.2-5.5); ALBUMIN/GLOBULIN RATIO 1.1 (1.0-2.2); ALKALINE PHOSPHATASE 76 IU/L (42-121); ALT ALANINE AMINOTRANSFERASE 34 IU/L (10-60); AMYLASE 90 U/L (28-100); AST ASPARTATE AMINOTRANSFERASE 25 IU/L (10-42); BILIRUBIN,TOTAL 0.4 mg/dL (0.2-1.0); BUN - BLOOD UREA NITROGEN 11 mg/dL (6-20); CALCIUM 8.8 mg/dL (8.5-10.3); CARBON DIOXIDE - CO2 27 mmol/L (21-32); CHLORIDE 99 mmol/L (101-111); CREATININE 1.1 mg/dL (0.6-1.2); GAMMA GLUTAMYL TRANSPEPTIDASE 23 IU/L (8-55); GFR - MDRD 71 (>89); GLUCOSE 113 mg/dL (70-100); SODIUM 134 mmol/L (135-145); TOTAL PROTEIN 6.6 g/dL (6.7-8.2)
[2017-08-14] MEDS: SODIUM CHLORIDE FLUSH 0.9% 10 ML SYRINGE IVP SCH ×3 (05:16→21:24)
[2017-08-14] MEDS: FAMOTIDINE 20 MG/50 ML 50 ML IV SCH ×2 (07:53→21:53)
[2017-08-14] MEDS: CARBOXYMETHYLCELLULOSE OPHTH DROPS EACHEYE PRN (10:48)
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
[2017-08-14] MEDS ORDERED: CALCIUM CARBONATE CHEW 500 MG TABLET PO PRN (12:50)
[2017-08-14] MEDS ORDERED: SODIUM CHLORIDE 0.9% 1,000 ML IV SCH (16:00)
[2017-08-14] MEDS: HYDROmorphone 2 MG TABLET PO PRN ×2 (17:12→21:23)
[2017-08-15] MEDS ORDERED: HYDROmorphone 1 MG/ML SYRINGE IVP STA (00:37)
[2017-08-15] MEDS: HYDROmorphone 2 MG TABLET PO PRN ×7 (01:07→22:16)
[2017-08-15] MEDS: SODIUM CHLORIDE FLUSH 0.9% 10 ML SYRINGE IVP PRN ×2 (01:08→01:50)
[2017-08-15] MEDS: SODIUM CHLORIDE FLUSH 0.9% 10 ML SYRINGE IVP SCH ×3 (01:08→21:55)
[2017-08-15] MEDS: TEMAZEPAM 15 MG CAPSULE PO PRN (01:09)
[2017-08-15] MEDS: CEFEPIME 2 GM in SODIUM CHLORIDE 0.9% MINIBAG 100 ML IV SCH ×3 (04:56→21:55)
[2017-08-15] MEDS: metroNIDAZOLE 500 MG/100 ML 500 MG/100 ML BAG IV SCH ×3 (05:41→19:14)
[2017-08-15 05:48] LABS: BASOPHILS # (AUTO) 0.1 10^3/uL (0.0-0.1); BASOPHILS % (AUTO) 0.8 %; EOSINOPHILS # (AUTO) 0.4 10^3/uL (0.0-0.7); EOSINOPHILS % (AUTO) 3.6 %; HGB - HEMOGLOBIN 12.6 g/dL (14.0-18.0); LYMPHOCYTES # (AUTO) 2.2 10^3/uL (1.5-3.5); LYMPHOCYTES % (AUTO) 22.4 %; MEAN CORPUSCULAR VOLUME 90.8 fL (80.0-94.0); MEAN PLATELET VOLUME 9.7 fL (7.4-11.4); MONOCYTES # (AUTO) 0.9 10^3/uL (0.0-1.0); MONOCYTES % (AUTO) 9.6 %; NEUTROPHILS # (AUTO) 6.2 10^3/uL (1.5-6.6); NEUTROPHILS % (AUTO) 63.6 %; PLT - PLATELET COUNT 288 10^3/uL (130-450); RED BLOOD COUNT 4.21 10^6/uL (4.70-6.10); RED CELL DISTRIBUTION WIDTH 13.4 % (12.0-15.0); WHITE BLOOD COUNT 9.7 x10^3/uL (4.8-10.8)
[2017-08-15 06:13] LABS: ALBUMIN 3.6 g/dL (3.2-5.5); ALBUMIN/GLOBULIN RATIO 1.1 (1.0-2.2); ALKALINE PHOSPHATASE 78 IU/L (42-121); ALT ALANINE AMINOTRANSFERASE 34 IU/L (10-60); AST ASPARTATE AMINOTRANSFERASE 29 IU/L (10-42); BILIRUBIN,TOTAL 0.7 mg/dL (0.2-1.0); BUN - BLOOD UREA NITROGEN 14 mg/dL (6-20); CARBON DIOXIDE - CO2 29 mmol/L (21-32); CHLORIDE 99 mmol/L (101-111); CREATININE 1.1 mg/dL (0.6-1.2); GFR - MDRD 71 (>89); GLUCOSE 86 mg/dL (70-100); SODIUM 135 mmol/L (135-145); TOTAL PROTEIN 6.9 g/dL (6.7-8.2)
[2017-08-15] MEDS: FAMOTIDINE 20 MG/50 ML 50 ML IV SCH (09:07)
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
[2017-08-15] MEDS ORDERED: fentaNYL 25 MCG PATCH TOP SCH (10:00)
[2017-08-15] MEDS: FAMOTIDINE 20 MG TABLET PO SCH ×2 (10:56→22:00)
[2017-08-15] MEDS ORDERED: PETROLATUM WHITE 5 GM PACKET TOP PRN (17:48)
[2017-08-15] MEDS ORDERED: PARAB/CET ALC/STRYL ALC/PG/SLS 473 ML BOTTLE TOP PRN (17:48)
[2017-08-15] MEDS: BIMATOPROST 0.01% OPHTH DROPS 2.5 ML EACHEYE SCH ×2 (19:14→22:01)
[2017-08-15] MEDS ORDERED: A & D OINTMENT 5 GM PACKET TOP PRN (22:01)
[2017-08-16] MEDS: SODIUM CHLORIDE FLUSH 0.9% 10 ML SYRINGE IVP PRN ×5 (00:29→19:21)
[2017-08-16] MEDS: metroNIDAZOLE 500 MG/100 ML 500 MG/100 ML BAG IV SCH ×4 (00:29→18:05)
[2017-08-16] MEDS: TEMAZEPAM 15 MG CAPSULE PO PRN (00:45)
[2017-08-16] MEDS: HYDROmorphone 2 MG TABLET PO PRN ×7 (01:22→21:18)
[2017-08-16 05:36] LABS: BASOPHILS # (AUTO) 0.1 10^3/uL (0.0-0.1); BASOPHILS % (AUTO) 0.7 %; EOSINOPHILS # (AUTO) 0.3 10^3/uL (0.0-0.7); EOSINOPHILS % (AUTO) 2.4 %; HGB - HEMOGLOBIN 13.3 g/dL (14.0-18.0); LYMPHOCYTES % (AUTO) 15.7 %; MEAN CORPUSCULAR HEMOGLOBIN 29.3 pg (27.0-31.0); MEAN CORPUSCULAR HGB CONC 32.3 g/dL (32.0-36.0); MEAN CORPUSCULAR VOLUME 90.6 fL (80.0-94.0); MEAN PLATELET VOLUME 9.6 fL (7.4-11.4); MONOCYTES # (AUTO) 1.2 10^3/uL (0.0-1.0); MONOCYTES % (AUTO) 9.4 %; NEUTROPHILS % (AUTO) 71.8 %; PLT - PLATELET COUNT 288 10^3/uL (130-450); RED BLOOD COUNT 4.55 10^6/uL (4.70-6.10); RED CELL DISTRIBUTION WIDTH 12.9 % (12.0-15.0); WHITE BLOOD COUNT 12.5 x10^3/uL (4.8-10.8)
[2017-08-16] MEDS: CEFEPIME 2 GM in SODIUM CHLORIDE 0.9% MINIBAG 100 ML IV SCH ×3 (05:36→21:18)
[2017-08-16] MEDS: SODIUM CHLORIDE FLUSH 0.9% 10 ML SYRINGE IVP SCH ×3 (05:37→21:18)
[2017-08-16 05:50] LABS: ALBUMIN 3.7 g/dL (3.2-5.5); ALBUMIN/GLOBULIN RATIO 1.1 (1.0-2.2); ALKALINE PHOSPHATASE 81 IU/L (42-121); ALT ALANINE AMINOTRANSFERASE 33 IU/L (10-60); AST ASPARTATE AMINOTRANSFERASE 28 IU/L (10-42); BILIRUBIN,TOTAL 0.7 mg/dL (0.2-1.0); BUN - BLOOD UREA NITROGEN 15 mg/dL (6-20); CALCIUM 9.3 mg/dL (8.5-10.3); CARBON DIOXIDE - CO2 30 mmol/L (21-32); CHLORIDE 97 mmol/L (101-111); GFR - MDRD 79 (>89); GLUCOSE 96 mg/dL (70-100); SODIUM 136 mmol/L (135-145); TOTAL PROTEIN 7.2 g/dL (6.7-8.2)
[2017-08-16] MEDS: FAMOTIDINE 20 MG TABLET PO SCH ×2 (07:49→21:18)
[2017-08-16] MEDS: BIMATOPROST 0.01% OPHTH DROPS 2.5 ML EACHEYE SCH ×2 (07:54→21:25)
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
[2017-08-16] MEDS ORDERED: SODIUM CHLORIDE 0.9% 500 ML IV PRN (12:19)
[2017-08-16] MEDS: SACCHAROMYCES BOULARDII 250 MG CAPSULE PO SCH ×2 (14:18→17:30)
[2017-08-16] MEDS: ONDANSETRON 4 MG/2 ML VIAL IVP PRN (17:51)
[2017-08-16 20:01] LABS: BILIRUBIN,URINE NEGATIVE (NEGATIVE); GLUCOSE, URINE (UA) NEGATIVE (NEGATIVE); KETONES,URINE (UA) NEGATIVE (NEGATIVE); LEUKOCYTE ESTERASE, URINE NEGATIVE (NEGATIVE); NITRITE,URINE NEGATIVE (NEGATIVE); OCCULT BLOOD,URINE NEGATIVE (NEGATIVE); PH,URINE 6.5 PH (5.0-7.5); PROTEIN,URINE NEGATIVE (NEGATIVE); UROBILINOGEN,URINE 0.2 (NORMAL) E.U./dL (NORMAL)
[2017-08-16 20:10] LABS: CLARITY,URINE CLEAR (CLEAR)
[2017-08-16 20:11] LABS: BACTERIA,URINE None Seen /HPF (None Seen); RBC,URINE None Seen /HPF (0-5); SQUAMOUS EPITHELIAL CELL,UR NONE SEEN (<= Few)
[2017-08-17] MEDS: metroNIDAZOLE 500 MG/100 ML 500 MG/100 ML BAG IV SCH ×3 (00:14→11:33)
[2017-08-17] MEDS: SODIUM CHLORIDE FLUSH 0.9% 10 ML SYRINGE IVP PRN ×3 (00:14→11:33)
[2017-08-17] MEDS: HYDROmorphone 2 MG TABLET PO PRN ×6 (00:24→17:19)
[2017-08-17] MEDS: CARBOXYMETHYLCELLULOSE OPHTH DROPS EACHEYE PRN (00:52)
[2017-08-17 05:11] LABS: HGB - HEMOGLOBIN 13.3 g/dL (14.0-18.0); MEAN CORPUSCULAR HEMOGLOBIN 29.5 pg (27.0-31.0); MEAN CORPUSCULAR HGB CONC 32.5 g/dL (32.0-36.0); MEAN CORPUSCULAR VOLUME 90.8 fL (80.0-94.0); MEAN PLATELET VOLUME 9.7 fL (7.4-11.4); RED BLOOD COUNT 4.5 10^6/uL (4.70-6.10); RED CELL DISTRIBUTION WIDTH 13.4 % (12.0-15.0); WHITE BLOOD COUNT 9.9 x10^3/uL (4.8-10.8)
[2017-08-17] MEDS: CEFEPIME 2 GM in SODIUM CHLORIDE 0.9% MINIBAG 100 ML IV SCH ×2 (05:46→13:52)
[2017-08-17] MEDS: SODIUM CHLORIDE FLUSH 0.9% 10 ML SYRINGE IVP SCH ×2 (07:09→13:52)
[2017-08-17] MEDS: FAMOTIDINE 20 MG TABLET PO SCH (08:31)
[2017-08-17] MEDS: SACCHAROMYCES BOULARDII 250 MG CAPSULE PO SCH ×2 (08:31→17:20)
[2017-08-17] MEDS: BIMATOPROST 0.01% OPHTH DROPS 2.5 ML EACHEYE SCH (08:32)
--- NOTE | 2017-08-17 11:25 | Discharge Plan ---
Discharge Plan Disposition: Home, Self Care Condition: Good Prescriptions: HYDROmorphone [Dilaudid] 6 mg PO Q3HR PRN #120 tablet PRN Reason: Severe Pain Moxifloxacin HCl 400 mg PO DAILY 10 Days #10 tablet Saccharomyces Boulardii [Florastor] 250 mg PO BID 20 Days #40 capsule Temazepam 15 mg PO QPM PRN #5 capsule PRN Reason: Insomnia Diet: Soft Activity Restrictions: No Restrictions Shower Restrictions: No Driving Restrictions: No Weight Bearing: Full Weight Instruction Topics: Temazepam tablets or capsules Additional Instructions or Follow Up instructions: You were admitted for treatment of your diverticulitis and given IV antibiotics that will be changed to PO today. Please see your PCP by the end of the week. He/she can make a referral to get your inguinal hernia repaired and a follow up colonoscopy in ~6 weeks. Please continue all medications and finish all antibiotics as directed. Please rest when you are tired. Eat soft foods and plenty of water. You may benefit from a pain specialist to deal with your chronic, everyday pain. No Smoking: If you smoke, Please STOP! Call for help.
[2017-08-17] MEDS ORDERED: IOPAMIDOL-300 100 ML VIAL ONE (11:28)
[2017-08-17] MEDS ORDERED: IOPAMIDOL-300 50 ML VIAL ONE (11:28)
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
[2017-08-17 16:17] VITALS: BP 127/68
[2017-08-17] MEDS ORDERED: IOPAMIDOL-300 50 ML VIAL PO ONE (16:46)
[2017-08-17] MEDS ORDERED: IOPAMIDOL-300 100 ML VIAL IVP ONE (16:46)
--- NOTE | 2017-08-18 16:16 | CT Report ---
CT ABDOMEN AND PELVIS WITH CONTRAST: 08/17/2017 CLINICAL INDICATION: Increased lower abdominal pain. COMPARISON: 08/12/2017, 08/03/2017, 07/28/2017. TECHNIQUE: Axial CT images of the abdomen and pelvis were obtained with 100 mL Isovue 300 intravenously as well as oral contrast. FINDINGS Limited evaluation of the lung bases is unremarkable. ABDOMEN: The liver, spleen, pancreas, kidneys and adrenal glands appear unremarkable. The gallbladder is not dilated. No bowel dilatation, free gas, or free fluid is present. No abdominal adenopathy is seen. PELVIS: There is persistent thickening of the mid sigmoid wall, in close association with the dome of the urinary bladder, as well as thickening of the dome of the urinary bladder. Differential considerations would include bladder tumor, sigmoid colon tumor, or ongoing inflammation. No abscess or perforation is identified. The appendix is seen in the right lower quadrant, and is normal in caliber. Bilateral inguinal hernias have increased in size, and more loops of small bowel are now present in the right inguinal hernia than seen previously on 08/12/2017. Osseous structures demonstrate degenerative changes. IMPRESSION 1. PERSISTENT ABNORMAL THICKENING OF THE MID SIGMOID COLON, IN CLOSE ASSOCIATION WITH THE DOME OF THE BLADDER, WITH ASSOCIATED THICKENING OF THE DOME OF THE BLADDER. DIFFERENTIAL CONSIDERATIONS WOULD INCLUDE SIGMOID TUMOR, BLADDER TUMOR, OR ONGOING INFLAMMATION. CORRELATION WITH COLONOSCOPY AND CYSTOSCOPY IS RECOMMENDED. 2. INTERVAL INCREASE IN SIZE OF BILATERAL INGUINAL HERNIAS, WITH INCREASE IN NUMBER OF NONOBSTRUCTED SMALL BOWEL LOOPS IN THE RIGHT INGUINAL HERNIA. CT DOSE REDUCTION STATEMENT In accordance with CT protocol optimization, one or more of the following dose reduction techniques were utilized for this exam: automated exposure control, adjustment of mA and/or KV based on patient size, or use of iterative reconstructive technique. TD: 08/17/2017 14:28 MTDD
== END 2017-08-17 17:59 | disposition home or self-care (01) | DRG 392 ==
LOC: ED 17:07 → MS3 21:51 → ICU 22:13 → MS3 22:27
PROVIDERS: ADMIT Internal Medicine; ATTEND Nurse Practitioner
DX: K57.32 Diverticulitis of large intestine without perforation or abscess without bleeding (principal); F12.20 Cannabis dependence, uncomplicated; F14.10 Cocaine abuse, uncomplicated; K40.20 Bilateral inguinal hernia, without obstruction or gangrene, not specified as recurrent; Z98.890 Other specified postprocedural states; Z79.891 Long term (current) use of opiate analgesic; Z79.2 Long term (current) use of antibiotics
CPT/HCPCS: 36415; 74177; 80048; 80053; 80306; 81001; 81003; 82150; 82977; 83690; 84443; 85025; 85610; 87086; 87493; 93306; 96365; 96367; 96375; 96376; 99284; 99285

== ENCOUNTER 2017-10-02 15:00 | Emergency (ER) | payer MEDICAID ==
[2017-10-02 15:34] LABS: BASOPHILS # (AUTO) 0.1 10^3/uL (0.0-0.1); BASOPHILS % (AUTO) 0.6 %; EOSINOPHILS # (AUTO) 0.1 10^3/uL (0.0-0.7); EOSINOPHILS % (AUTO) 0.6 %; HGB - HEMOGLOBIN 13.8 g/dL (14.0-18.0); LYMPHOCYTES # (AUTO) 1.4 10^3/uL (1.5-3.5); LYMPHOCYTES % (AUTO) 16.5 %; MEAN CORPUSCULAR HEMOGLOBIN 30.4 pg (27.0-31.0); MEAN CORPUSCULAR HGB CONC 33.4 g/dL (32.0-36.0); MEAN CORPUSCULAR VOLUME 90.8 fL (80.0-94.0); MEAN PLATELET VOLUME 9.5 fL (7.4-11.4); MONOCYTES # (AUTO) 0.5 10^3/uL (0.0-1.0); MONOCYTES % (AUTO) 6.1 %; NEUTROPHILS # (AUTO) 6.4 10^3/uL (1.5-6.6); NEUTROPHILS % (AUTO) 76.2 %; PLT - PLATELET COUNT 304 10^3/uL (130-450); RED BLOOD COUNT 4.56 10^6/uL (4.70-6.10); WHITE BLOOD COUNT 8.4 x10^3/uL (4.8-10.8)
[2017-10-02] MEDS ORDERED: ACETAMINOPHEN 1,000 MG/100 ML 100 ML IV STA (15:36)
[2017-10-02] MEDS ORDERED: SODIUM CHLORIDE 0.9% 1,000 ML IV ONE (15:36)
[2017-10-02 15:49] LABS: ALBUMIN 4.1 g/dL (3.2-5.5); ALBUMIN/GLOBULIN RATIO 1.1 (1.0-2.2); BILIRUBIN,TOTAL 0.7 mg/dL (0.2-1.0); CALCIUM 9.4 mg/dL (8.5-10.3); CREATININE 0.7 mg/dL (0.6-1.2); TOTAL PROTEIN 7.7 g/dL (6.7-8.2)
--- NOTE | 2017-10-02 15:57 | ED Physician Documentation ---
History of Present Illness - Stated complaint Stated Complaint: ADB PX - Chief complaint Chief Complaint: Abd Pain - Additonal information Additional information: hx from pt hx divertulitis 3 X before last time he failed augmentin but states he got better with cipro and flagyl last admit had a CT that showed an abn segment of colon possible malignancy and follow up was recommended and pt is due to have scopes by and also have his inguinal hernias addressed he was fine yesterday today awoke with severe abd cramps, diarrhea which has become bloody and nausea no fever no travel no bad food last ab use 3 weeks ago Review of Systems Constitutional: denies: Fever Cardiac: denies: Chest pain / pressure Respiratory: denies: Dyspnea, Cough GI: reports: Abdominal Pain, Nausea, Diarrhea, Bloody / black stool : denies: Dysuria Endocrine: denies: Easy bruising / bleeding Immunocompromised: denies: Immunocompromised PD PAST MEDICAL HISTORY - Past Medical History Past Medical History: Yes Cardiovascular: None Respiratory: None Neuro: None Endocrine/Autoimmune: None GI: Diverticulitis : None HEENT: None Psych: None Musculoskeletal: Osteoarthritis Derm: None - Past Surgical History Past Surgical History: Yes Ortho: Spine surgery, Other - Present Medications Home Medications: Ambulatory Orders Medication Instructions Recorded Confirmed Saccharomyces Boulardii [Florastor] 250 mg PO BID 20 Days #40 capsule 08/17/17 Temazepam 15 mg PO QPM PRN #5 capsule 08/17/17 Dicyclomine [Bentyl] 10 mg PO Q8H PRN #20 capsule 10/02/17 Metronidazole [Flagyl] 500 mg PO BID #14 tablet 10/02/17 Promethazine [Phenergan] 25 mg PO Q6H PRN #10 tablet 10/02/17 Saccharomyces Boulardii [Florastor] 500 mg PO BID #40 capsule 10/02/17 - Allergies Allergies/Adverse Reactions: Allergies Allergy/AdvReac Type Severity Reaction Status Date / Time No Known Drug Allergies Allergy Verified 08/12/17 17:23 - Social History Does the pt smoke?: No Smoking Status: Never smoker Does the pt drink ETOH?: No Does the pt have substance abuse?: Yes Substance Use and Type: Marijuana - Immunizations Immunizations are current?: Yes - POLST Patient has POLST: No PD ED PE NORMAL - Vitals Vital signs reviewed: Yes - Neck Neck: Supple, no meningeal sign - Cardiac Cardiac: RRR - Respiratory Respiratory: No respiratory distress, Clear bilaterally - Abdomen Abdomen: Soft, Other (diffuse TTP left > R non peritoneal) - Male Male : Other (large but reducible R inguinal hernia) - Derm Derm: Normal color - Extremities Extremities: No deformity Results - Vitals Vitals: Vital Signs - 24 hr 10/02/17 10/02/17 10/02/17 15:03 16:50 17:30 Temperature 36.3 C L Heart Rate 89 85 60 Respiratory 14 17 18 Rate Blood Pressure 123/79 137/77 H 125/72 O2 Saturation 96 96 97 Oxygen O2 Source Room air - Labs Labs: Laboratory Tests 10/02/17 10/02/17 15:23 15:23 WBC 8.4 RBC 4.56 L Hgb 13.8 L Hct 41.4 L MCV 90.8 MCH 30.4 MCHC 33.4 RDW 14.0 Plt Count 304 MPV 9.5 Neut # 6.4 Lymph # 1.4 L Rogers # 0.5 Eos # 0.1 Baso # 0.1 Absolute Nucleated RBC 0.00 Nucleated RBC % 0.0 Sodium 137 Potassium 4.1 Chloride 102 Carbon Dioxide 26 Anion Gap 9.0 BUN 15 Creatinine 0.7 Estimated GFR (MDRD) 120 Glucose 102 H Calcium 9.4 Total Bilirubin 0.7 AST 28 ALT 26 Alkaline Phosphatase 98 Total Protein 7.7 Albumin 4.1 Globulin 3.6 Albumin/Globulin Ratio 1.1 Lipase 18 L - Rads (name of study) CT AP Radiology: See rad report (solid organs unremarkable, GB nl, nl stomach and small bowel, persistant sigmoid colon wall thickening with underlying diverticulosis possibly diverticultis or colitis or neoplasm, fat plane between bladder and sigmoid not well defined, diverticula, pericolonic fat stranding, subcm nodes, no free air, miladis inguinal hernias, small segment of bowel in R hernia no obstruction or inflamation (and easily reduced on exam), no air in bladder to suggest fistula, mod distension of bladder, no aneurysm, nl prostate , degen L spine) PD MEDICAL DECISION MAKING - ED course ED course: colitis on CT vs persistently abn colon of non infectious (inflammatory or malignant) etiology no fever nl WBC non surgical abd pt unable to provide a stool sample - took imodium will dc on flagyl and florastor for now - has been on many many ab over last few months (augmentin cipro flagyl zosyn) pt repeatedly requesting dialudid - reviewed DANIELLE iglesias seems pt received 144 dilaudid pills in the month of Jul, also vincent brenda from Jul inpt stay indicates pt used cocaine while admitted to the hospital - so will not be using more controlled substances at this time Departure - Departure Disposition: Home, Self Care Clinical Impression: Colitis Condition: Good Instructions: Metronidazole tablets or capsules Follow-Up: Albaro Freeman PA-C [Primary Care Provider] - Alexx Adams MD [Provider Admit Priv/Credential] - Prescriptions: Dicyclomine [Bentyl] 10 mg PO Q8H PRN #20 capsule PRN Reason: stomach cramps Metronidazole [Flagyl] 500 mg PO BID #14 tablet Promethazine [Phenergan] 25 mg PO Q6H PRN #10 tablet PRN Reason: vomiting Saccharomyces Boulardii [Florastor] 500 mg PO BID #40 capsule Comments: On CT you still have an inflamed area of colon, similar to the prior scans There is no fistula seen on CT though the bladder and the colon are close enough that this could certainly occur. No abscess or perforation So I have prescribed antibiotics again. For now I have prescribed flagyl - if you do not get better with this antibiotic, you may need to be an broader spectrum antibiotics or even IV antibiotics like last time. I have prescribed medication for the nausea and pain but do not think narcotics would be the best choice for this problem - I have prescribed bentyl this time If the diarrhea continues you need to collect a sample and have your PMD or to your surgical follow up send it to be tested for c.diff which is an infection that occurs after taking antibiotics. I am concerned that the same section of bowel continues to appear abnormal on CT even after several rounds of antibiotics - this could be cancer - it is very very important that you see the surgeons to get a colonoscopy - be sure to make it to your scheduled appointment October 05 Recommend a clear liquid diet for 2 days to rest your bowel - this should help decrease the pain as well Please follow up with the surgeons office October 05 Return to the ER if worsening Forms: Activity restrictions
[2017-10-02] MEDS ORDERED: HYDROmorphone 1 MG/ML CARPUJECT IVP STA (16:04)
--- NOTE | 2017-10-02 16:20 | CT Report ---
EXAM: CT ABDOMEN AND PELVIS EXAM DATE: 10/02/2017 03:45 PM. CLINICAL HISTORY: Abdominal pain COMPARISONS: 08/17/2017. TECHNIQUE: Routine axial helical CT imaging was performed through the abdomen and pelvis without IV c ontrast. Reconstructions: Coronal and sagittal. In accordance with CT protocol optimization, one or more of the following dose reduction techniques w ere utilized for this exam: automated exposure control, adjustment of mA and/or KV based on patient s ize, or use of iterative reconstructive technique. FINDINGS: Lung Bases: Unremarkable. Abdominal Organs: Noncontrast images of the abdominal organs are grossly unremarkable. Gallbladder/bile ducts: No significant abnormalities. Peritoneal Cavity: Stomach and small bowel demonstrate no acute abnormalities. There is persistent si gmoid colon wall thickening. Fat plane between the urinary bladder and sigmoid colon is not well-defi mandi. There are scattered colonic diverticula. There is some mild pericolonic fat stranding. There are subcentimeter pericolonic lymph nodes. No intraperitoneal free air. Pelvic Organs: There are bilateral inguinal hernias. There is short segment of bowel protruding into the right inguinal hernia. No evidence of associated obstruction or inflammation. No air is seen with in the urinary bladder. There is moderate distention of the urinary bladder. Prostate and seminal ves icles are within normal limits. Vasculature: There are no vascular aneurysms. There is tortuosity of the abdominal aorta. Other: There is lumbar spine degenerative disease. IMPRESSION: 1. Relatively stable sigmoid colon wall thickening with some adjacent enlarged lymph nodes and fat st randing. There is poor definition of the fat plain between the sigmoid colon and urinary bladder. Dif ferential considerations remain colon cancer or diverticulitis. Solid abdominal organs demonstrate no acute abnormalities. 3. There is no evidence of bowel obstruction or appendicitis. 4. Bilaterally inguinal hernias are unchanged. There is bowel extending into the right inguinal herni a without evidence of obstruction or inflammation. Referring Provider Line: [phone] SITE ID: [id number]
[2017-10-02] MEDS ORDERED: KETOROLAC 60 MG/2 ML VIAL IVP STA (17:35)
[2017-10-02 18:15] VITALS: BP 128/51
== END 2017-10-02 18:14 | disposition home or self-care (01) ==
LOC: ED 15:00
DX: K52.9 Noninfective gastroenteritis and colitis, unspecified (principal)
CPT/HCPCS: 36415; 74176; 80053; 83690; 85025; 96361; 96365; 96375; 99283; 99284; J0131; J1170

== ENCOUNTER 2017-10-13 08:27 | Day surgery (SDC) | payer MEDICAID ==
[2017-10-13] MEDS ORDERED: PHENYLEPHRINE 2.5% OPHTH 2 ML DROPS ONE (08:54)
[2017-10-13] MEDS ORDERED: KETOROLAC 0.45% OPHTH DROPS ONE (08:54)
[2017-10-13] MEDS ORDERED: CYCLOPENTOLATE 1% OPHTH DROPS 2 ML ONE (08:54)
[2017-10-13] MEDS ORDERED: PROPARACAINE 0.5% OPHTH DROPS 15 ML ONE (08:54)
[2017-10-13] MEDS ORDERED: LACTATED RINGERS 1,000 ML IV ONE (08:57)
[2017-10-13] MEDS ORDERED: MIDAZOLAM 2 MG/2 ML VIAL IVP ONE (10:09)
[2017-10-13] MEDS ORDERED: fentaNYL 250 MCG/5 ML VIAL IVP ONE (10:09)
[2017-10-13 12:35] VITALS: BP 96/56
== END 2017-10-13 08:28 | disposition home or self-care (01) ==
LOC: SDS 08:27
PROVIDERS: ATTEND Internal Medicine Gastroenterology
PROC: 0DJD8ZZ Inspection of Lower Intestinal Tract, Via Natural or Artificial Opening Endoscopic (ICD-10-PCS; principal; 2017-10-13 09:30)
DX: R10.31 Right lower quadrant pain (principal); K57.30 Diverticulosis of large intestine without perforation or abscess without bleeding
CPT/HCPCS: 45378; J3010; J7120

== ENCOUNTER 2018-05-05 15:13 | Emergency (ER) | payer MEDICAID ==
[2018-05-05 15:24] VITALS: BP 141/83
[2018-05-05] MEDS ORDERED: HYDROcod/ACETAM 5/325 MG TABLET PO STA (15:58)
--- NOTE | 2018-05-05 16:00 | ED Physician Documentation ---
History of Present Illness - Stated complaint Stated Complaint: MALE - Chief complaint Chief Complaint: Abd Pain - History obtained from History obtained from: Patient - History of Present Illness Timing: How many weeks ago (several) Pain level max: 6 Pain level now: 6 - Additonal information Additional information: Patient is a 48-year-old male with a right inguinal hernia, scheduled for surgery next Tuesday. Has had continued pain. Motrin and Tylenol are helping. Requesting something stronger for a few days. No fevers. No diarrhea. No vomiting. Tried a truss without relief. Nothing makes it better, worse with palpation and standing. Review of Systems Constitutional: denies: Fever, Chills GI: denies: Vomiting Skin: denies: Rash Musculoskeletal: denies: Neck pain, Back pain PD PAST MEDICAL HISTORY - Past Medical History Past Medical History: Yes Cardiovascular: Other Respiratory: None Endocrine/Autoimmune: None GI: Diverticulitis, Other : None HEENT: None Psych: None Musculoskeletal: Osteoarthritis, Other Derm: None - Past Surgical History Past Surgical History: Yes General:  Ortho: Spine surgery, Other - Present Medications Home Medications: Ambulatory Orders Medication Instructions Recorded Confirmed Hydrocodone/Acetaminophen 1 - 2 each PO Q6H PRN #14 tablet 05/05/18 [Hydrocodon-Acetaminophen 5-325] - Allergies Allergies/Adverse Reactions: Allergies Allergy/AdvReac Type Severity Reaction Status Date / Time No Known Drug Allergies Allergy Verified 05/05/18 15:24 - Social History Does the pt smoke?: No Smoking Status: Never smoker Does the pt drink ETOH?: No Does the pt have substance abuse?: Yes - Immunizations Immunizations are current?: Yes - POLST Patient has POLST: No PD ED PE NORMAL - Vitals Vital signs reviewed: Yes - General General: Alert and oriented X 3, No acute distress, Well developed/nourished - HEENT HEENT: PERRL, Moist mucous membranes - Neck Neck: Supple, no meningeal sign - Cardiac Cardiac: RRR, Strong equal pulses - Respiratory Respiratory: No respiratory distress, Clear bilaterally - Abdomen Abdomen: Soft, Non tender, Non distended - Male Male : Other (large R inguinal hernia without signs of incarceration. no skin changes.) - Derm Derm: Warm and dry - Neuro Neuro: Alert and oriented X 3 - Psych Psych: Normal mood, Normal affect Results - Vitals Vitals: Vital Signs - 24 hr 05/05/18 15:20 Temperature 36.1 C L Heart Rate 98 Respiratory 16 Rate Blood Pressure 141/83 H O2 Saturation 96 Oxygen O2 Source Room air PD MEDICAL DECISION MAKING - ED course Complexity details: considered differential, d/w patient ED course: 48-year-old male with a right inguinal hernia. Not incarcerated. Will prescribe a small amount of pain medication and follow-up with his doctor on Tuesday as scheduled for surgery. Patient counseled regarding signs and symptoms for which I believe and urgent re-evaluation would be necessary. Patient with good understanding of and agreement to plan and is comfortable going home at this time This document was made in part using voice recognition software. While efforts are made to proofread this document, sound alike and grammatical errors may occur. Departure - Departure Disposition: 01 Home, Self Care Clinical Impression: Inguinal hernia Qualifiers: Obstruction and gangrene presence: without obstruction or gangrene Laterality: unilateral Recurrence: non-recurrent Qualified Code(s): K40.90 - Unilateral inguinal hernia, without obstruction or gangrene, not specified as recurrent Condition: Good Instructions: ED Hernia Inguinal Follow-Up: Jovan Odonnell MD [Provider Admit Priv/Credential] - Within 1 week Prescriptions: Hydrocodone/Acetaminophen [Hydrocodon-Acetaminophen 5-325] 1 - 2 each PO Q6H PRN #14 tablet PRN Reason: pain Comments: Use the medications as prescribed. Return if you worsen. Follow-up with surgery on Tuesday as scheduled to have your hernia repaired. Do not drink alcohol or drive while on narcotic pain medicine. Note that many narcotic pain relievers also contain tylenol/acetaminophen. Please ensure that your total dose of acetaminophen from all sources does not exceed 3 grams (3000mg) per day. You may constipated on this medication, take a stool softener such as "Colace" twice a day while you are on it. Also recommend a [id number] laxative such as senna or MiraLAX any day that you do not have a bowel movement. If you received narcotic pain medication in the emergency department, do not drive or operate machinery for the next 24 hours. Discharge Date/Time: 05/05/18 16:09
== END 2018-05-05 16:09 | disposition home or self-care (01) ==
LOC: ED 15:13
DX: K40.90 Unilateral inguinal hernia, without obstruction or gangrene, not specified as recurrent (principal)
CPT/HCPCS: 99283; A9270

== ENCOUNTER 2018-05-12 06:18 | Day surgery (SDC) | payer MEDICAID ==
[2018-05-12] MEDS ORDERED: ceFAZolin 2 GM/50 ML 2 GM/50 ML BAG IV ONE (06:33)
[2018-05-12] MEDS ORDERED: LACTATED RINGERS 1,000 ML IV ONE (06:36)
--- NOTE | 2018-05-12 07:12 | ANESTHESIA ---
Pre-Anesthesia VS, & Labs - Diagnosis Right inguinal hernia - Procedure Right inguinal hernia repair with mesh Vital Signs: Temp Pulse Resp BP Pulse Ox 36.6 C 73 16 133/89 H 97 05/12/18 06:44 05/12/18 06:44 05/12/18 06:44 05/12/18 06:44 05/12/18 06:44 Height 5 ft 11 in Weight (kg) 99.3 kg Body Mass Index 29.7 - NPO >8 hours Home Medications and Allergies Allergies/Adverse Reactions: Allergies Allergy/AdvReac Type Severity Reaction Status Date / Time No Known Drug Allergies Allergy Verified 05/11/18 13:03 Anes History & Medical History - Anesthetic History Anesthesia Complications: reports: No previous complications Family history of Anesthesia Complications: Denies Family history of Malignant Hyperthermia: Denies - Medical History Cardiovascular: reports: None, Other Pulmonary: reports: None Gastrointestinal: reports: None, Diverticulitis Urinary: reports: None Neuro: reports: None Musculoskeletal: reports: Osteoarthritis, Chronic back pain, Other Endocrine/Autoimmune: reports: None Blood Disorders: reports: None Skin: reports: None Smoking Status: Never smoker Psychosocial: reports: No issues indicated, Alcohol (Recent hx of incarceration for DUI) - Surgical History General:  Orthopedic: Spine surgery, Other Exam General: Alert, Oriented x3 Dental: Other (Left upper loose) Neck Mobility: Normal Mallampati classification: II Thyromental Distance: greater than 6 cm Respiratory: Lungs clear, Normal breath sounds Cardiovascular: Regular rate Neurological: Normal speech Mental/Cognitive Status: Alert/Oriented X3, Normal for patient Cognitive Status: Within normal limits Plan Anesthesia Type: General Consent for Procedure(s) Verified and Reviewed: Yes Code Status: Attempt Resuscitation ASA classification: 2-Mild systemic disease Is this case an emergency?: No
[2018-05-12] MEDS ORDERED: BUPIVACAINE 0.5% PF 30 ML VIAL ONE (07:22)
[2018-05-12] MEDS ORDERED: BUPIVACAINE 0.5% PF 30 ML VIAL SUBQ ONE ×2 (07:58)
[2018-05-12] MEDS ORDERED: ACETAMINOPHEN 1,000 MG/100 ML 100 ML IV ONE (08:06)
[2018-05-12] MEDS ORDERED: KETOROLAC 30 MG/ML VIAL IVP ONE (08:06)
[2018-05-12] MEDS ORDERED: ceFAZolin 2 GM/50 ML BAG IV ONE (08:06)
[2018-05-12] MEDS ORDERED: ONDANSETRON 4 MG/2 ML VIAL IVP ONE (08:06)
[2018-05-12] MEDS ORDERED: PROPOFOL 200 MG/20 ML VIAL IVP ONE (08:06)
[2018-05-12] MEDS ORDERED: fentaNYL 100 MCG/2 ML VIAL IVP ONE (08:06)
[2018-05-12] MEDS ORDERED: LIDOCAINE-MPF 2% 5 ML VIAL IM ONE (08:06)
--- NOTE | 2018-05-12 09:21 | IMMEDIATE POSTOPERATIVE NOTE ---
Immediate Postoperative Note - Procedure Note Procedure Date: 05/12/18 Pre-Op Diagnosis: right ingunial hernia Procedure: open right inguinal hernia repair Post-Op Diagnosis: same Primary Surgeon: barbara Anesthesia Type: General ET tube Complications: No complications Estimated Blood Loss (in cc): 10 Plan of Care: Discharge
[2018-05-12] MEDS: fentaNYL 100 MCG/2 ML VIAL ONE ×2 (09:25→09:34)
[2018-05-12] MEDS: HYDROmorphone 1 MG/ML CARPUJECT ONE ×2 (09:44→09:52)
[2018-05-12] MEDS ORDERED: oxyCOD/ACETAMIN 5 MG/325 MG TABLET PO ONE (10:55)
--- NOTE | 2018-05-12 10:56 | OPERATIVE REPORT ---
DATE OF SERVICE: 05/12/2018 Physician: Jovan Odonnell MD PREOPERATIVE DIAGNOSIS: Right inguinal hernia. POSTOPERATIVE DIAGNOSIS: Right inguinal hernia. PROCEDURE PERFORMED: Open right inguinal hernia repair with mesh. SURGEON:Belle SURVEY SUPERVISOR: ANESTHESIA TYPE/PROVIDER: INDICATIONS FOR PROCEDURE: The patient is a 48-year-old man who presented to the clinic complaining of a longstanding right inguinal hernia that had gotten very large and was taking up most of his scrotum. Complaining of severe pain limiting his work, requesting repair. PROCEDURE IN DETAIL: The risks and benefits were explained to the patient. He agreed to the procedure. He was taken to the operating room and placed under general anesthesia and intubated. The abdomen was prepped and draped. A timeout was performed, and everyone in the room agreed to the procedure. We began by making a right transverse inguinal incision, about 5-6 cm, and carried this down through Petra's fascia to the external oblique, which was opened sharply, and exposed a very large hernia sac, going down in the scrotum. It was very large and tethered to the testicular contents, so instead of dissecting it out of the scrotum, we identified the spermatic cord, it from the sac, and then opened the sac sharply on the lateral side. This exposed the sac contents - a loop of small bowel. This was reduced back into the abdominal cavity. The sac was then completely transected. The proximal sac was closed with Vicryl. The distal was left open and put back into the scrotum. The proximal sac was pushed back into the preperitoneal space through the internal inguinal ring. A piece of flat polypropylene mesh was then cut to fit his inguinal canal. It was sutured to the tissue overlying the pubic tubercle medially, the conjoined tendon superiorly, the shelving edge of the inguinal canal inferiorly, and the internal oblique laterally. A slit was made to accommodate the cord and the tails were attached together laterally. The external oblique was then closed with a running Vicryl stitch. The Petra's fascia was closed using 3 interrupted Vicryl sutures, and the overlying skin was closed using 4-0 Monocryl and Dermabond. Then, 10 mL of local anesthetic was infused into the incision prior to closure. This terminated the procedure. The patient tolerated it well. He was extubated in the operating room and taken to recovery room in stable condition. Instrument and lap counts were correct. ESTIMATED BLOOD LOSS: 10 mL COMPLICATIONS: None. SPECIMENS: None. PLAN: Plan is for him to go home later today. TD: 05/12/2018 09:27 MELODIE
[2018-05-12 12:33] VITALS: BP 125/66
== END 2018-05-12 06:19 | disposition home or self-care (01) ==
LOC: SDS 06:18
PROVIDERS: ATTEND Surgery
PROC: 0YU50JZ Supplement Right Inguinal Region with Synthetic Substitute, Open Approach (ICD-10-PCS; principal; 2018-05-12 07:30)
DX: K40.90 Unilateral inguinal hernia, without obstruction or gangrene, not specified as recurrent (principal)
CPT/HCPCS: 49505; A9270; C1781; J0131; J0690; J1170; J7120

== ENCOUNTER 2018-05-15 12:45 | Emergency (ER) | payer MEDICAID ==
--- NOTE | 2018-05-15 13:46 | ED Physician Documentation ---
History of Present Illness - Stated complaint Stated Complaint: POST OP COMPLICATION - Chief complaint Chief Complaint: General - History obtained from History obtained from: Patient - History of Present Illness Timing: Other (4 days post op from inguinal hernia repair, on percocet for pain. Now increased pain and swelling at surgical site.) Review of Systems Ten Systems: 10 systems reviewed and negative Constitutional: reports: Chills, Sweats Respiratory: denies: Dyspnea, Cough GI: denies: Abdominal Pain, Nausea, Vomiting PD PAST MEDICAL HISTORY - Past Medical History Cardiovascular: None, Other Respiratory: None Neuro: None Endocrine/Autoimmune: None GI: None, Diverticulitis : None HEENT: None Psych: None Musculoskeletal: Osteoarthritis, Chronic back pain, Other Derm: None - Past Surgical History Past Surgical History: Yes General:  Ortho: Spine surgery, Other - Present Medications Home Medications: Ambulatory Orders Medication Instructions Recorded Confirmed Ibuprofen [Motrin] 800 mg PO Q8H PRN #30 tablet 05/15/18 - Allergies Allergies/Adverse Reactions: Allergies Allergy/AdvReac Type Severity Reaction Status Date / Time No Known Drug Allergies Allergy Verified 05/11/18 13:03 - Social History Does the pt smoke?: No Smoking Status: Never smoker Does the pt drink ETOH?: No Does the pt have substance abuse?: Yes - Family History Family history: reports: Non contributory - Immunizations Immunizations are current?: Yes - POLST Patient has POLST: No PD ED PE NORMAL - Vitals Vital signs reviewed: Yes - General General: Alert and oriented X 3, No acute distress - Neck Neck: Supple, no meningeal sign, No bony TTP - Cardiac Cardiac: RRR, No murmur - Respiratory Respiratory: No respiratory distress, Clear bilaterally - Abdomen Abdomen: Normal bowel sounds, Soft, Non tender - Male Male : Other (Pretty significant swelling over the surgical site in the right inguinal area grown with some warmth. Not overtly cellulitic though.) - Back Back: No CVA TTP, No spinal TTP - Derm Derm: Normal color, Warm and dry - Extremities Extremities: No edema, No calf tenderness / cord - Neuro Neuro: Alert and oriented X 3, Normal speech - Psych Psych: Normal mood, Normal affect Results - Vitals Vitals: Vital Signs - 24 hr 05/15/18 05/15/18 12:56 12:59 Temperature 37.0 C Heart Rate 95 Respiratory 16 Rate Blood Pressure 130/80 O2 Saturation 97 Oxygen O2 Source Room air - Labs Labs: Laboratory Tests 05/15/18 05/15/18 14:06 14:06 WBC 12.5 H RBC 4.13 L Hgb 12.8 L Hct 37.3 L MCV 90.5 MCH 31.0 MCHC 34.2 RDW 13.2 Plt Count 260 MPV 9.2 Neut # (Auto) 9.5 H Lymph # (Auto) 1.2 L Dukes # (Auto) 1.4 H Eos # (Auto) 0.3 Baso # (Auto) 0.0 Absolute Nucleated RBC 0.00 Nucleated RBC % 0.0 Sodium 134 L Potassium 3.9 Chloride 99 L Carbon Dioxide 26 Anion Gap 9.0 BUN 14 Creatinine 0.9 Estimated GFR (MDRD) 89 Glucose 122 H Calcium 9.4 Total Bilirubin 0.9 AST 29 ALT 41 Alkaline Phosphatase 114 Total Protein 8.5 H Albumin 4.0 Globulin 4.5 H Albumin/Globulin Ratio 0.9 L Lipase 25 PD MEDICAL DECISION MAKING - ED course ED course: 48 yo with post op swelling, spoke with Dr Wendy Adams risk control field representative surgery who viewed photos of the pt with pt permission and feels the appearance is appropriate given the preop size of the hernia and recommends conservative care. Departure - Departure Disposition: 01 Home, Self Care Clinical Impression: Post-op pain Condition: Good Record reviewed to determine appropriate education?: Yes Instructions: Hernia Repair Open Dc Prescriptions: Ibuprofen [Motrin] 800 mg PO Q8H PRN #30 tablet PRN Reason: PAIN &/OR FEVER Forms: Activity restrictions
[2018-05-15] MEDS: HYDROmorphone 1 MG/ML CARPUJECT IVP STA ×2 (14:14→16:07)
[2018-05-15 14:25] LABS: BASOPHILS % (AUTO) 0.4 %; EOSINOPHILS # (AUTO) 0.3 10^3/uL (0.0-0.7); EOSINOPHILS % (AUTO) 2.6 %; HGB - HEMOGLOBIN 12.8 g/dL (14.0-18.0); LYMPHOCYTES # (AUTO) 1.2 10^3/uL (1.5-3.5); LYMPHOCYTES % (AUTO) 9.8 %; MEAN CORPUSCULAR HGB CONC 34.2 g/dL (32.0-36.0); MEAN CORPUSCULAR VOLUME 90.5 fL (80.0-94.0); MEAN PLATELET VOLUME 9.2 fL (7.4-11.4); MONOCYTES # (AUTO) 1.4 10^3/uL (0.0-1.0); NEUTROPHILS # (AUTO) 9.5 10^3/uL (1.5-6.6); NEUTROPHILS % (AUTO) 76.2 %; PLT - PLATELET COUNT 260 10^3/uL (130-450); RED BLOOD COUNT 4.13 10^6/uL (4.70-6.10); RED CELL DISTRIBUTION WIDTH 13.2 % (12.0-15.0); WHITE BLOOD COUNT 12.5 x10^3/uL (4.8-10.8)
[2018-05-15 14:39] LABS: ALBUMIN/GLOBULIN RATIO 0.9 (1.0-2.2); BILIRUBIN,TOTAL 0.9 mg/dL (0.2-1.0); CALCIUM 9.4 mg/dL (8.5-10.3); CREATININE 0.9 mg/dL (0.6-1.2); TOTAL PROTEIN 8.5 g/dL (6.7-8.2)
[2018-05-15 16:13] VITALS: BP 129/82
== END 2018-05-15 16:14 | disposition home or self-care (01) ==
LOC: ED 12:45
DX: G89.18 Other acute postprocedural pain (principal)
CPT/HCPCS: 36415; 80053; 83690; 85025; 96374; 96376; 99283